=== PATIENT | female | born 1990 | race Caucasian/White ===

== ENCOUNTER 2022-02-19 16:40 | Emergency (ER) | payer BC, SELFPAY ==
[2022-02-19 16:50] VITALS: BP 129/88; PULSE 69; RESP 16; TEMP 36.7; O2SAT 99
--- NOTE | 2022-02-19 17:27 | ED.URI ---
HPI - URI/Sore Throat General Chief Complaint: Upper Respiratory Infection Stated Complaint: Cough Time Seen by Provider: 02/19/22 17:00 Source: patient Mode of arrival: ambulatory Limitations: no limitations History of Present Illness HPI Narrative: Mrs. Ledesma is a 32-year-old female patient presenting to the clinic today with complaints of cough x7 days. She reports that she is also had some nasal congestion and feels as though drainage is going in the back of her throat. She denies any known exposure to anyone with COVID, flu, or strep MD elicited complaint: nasal congestion Related Data Home Medications Medication Instructions Recorded Confirmed aspirin 81 mg chewable tablet 81 mg PO DAILY 06/25/21 02/19/22 cholecalciferol (vitamin D3) 125 125 mcg PO DAILY 06/25/21 02/19/22 mcg (5,000 unit) capsule levonorgestrel-ethinyl estradiol 1 tablet PO DAILY 06/25/21 02/19/22 0.1 mg-20 mcg tablet Allergies Allergy/AdvReac Type Severity Reaction Status Date / Time No Known Allergies Allergy Verified 02/19/22 16:46 Review of Systems Review of Systems: Pertinent positives per HPI. Patient denies any fever, chills, rash, headache, visual changes, dizziness, shortness of breath, chest pain, palpitations, nausea, vomiting, diarrhea, constipation, abdominal pain, or any urinary issues. [facility] Family History Family History Mother Endometriosis Social History Social History Alcohol intake: current Substance use: never Gender identity (if verbalized by the patient): Female Sexual Orientation (if Verbalized by the Patient): Straight or Heterosexual Comments At the time of my signature, I reviewed and agree with the nursing past medical, surgical, social, and family history. There is no relevant family history pertinent to the patient complaint. Exam Narrative: General: Well-developed, overweight, in no apparent distress Head: Normocephalic, atraumatic Eyes: Pupils equally round and reactive to light bilaterally, EOM intact, sclera and conjunctive clear, no discharge, lids normal Ears: TMs intact and clear, ear canals clear, no drainage, grossly hearing normal. Nose: Nares patent, clear nasal discharge, mild inflammation, no sinus tenderness. Mouth: Oral pharynx without lesions or masses, good dentition, MMM. Postnasal drip Neck: Supple, trachea midline, no enlargement of anterior or posterior cervical nodes, no thyroid masses or goiter palpable. Cardio: Regular rate and rhythm, s1 and s2 normal, no murmur appreciated. Resp: Clear to auscultation bilaterally, no rhonchi, rales, wheezing or rubs Course Course Emergency Course: Portions of this record may have been created with voice recognition software. Level of Care: Express Care Visit Vital Signs Vital signs: Vital Signs Temperature 36.7 C 02/19/22 16:50 Pulse Rate 69 02/19/22 16:50 Respiratory Rate 16 02/19/22 16:50 Blood Pressure 129/88 02/19/22 16:50 Pulse Oximetry 99 02/19/22 16:50 Temperature 36.7 C 02/19/22 16:50 Pulse Rate 69 02/19/22 16:50 Respiratory Rate 16 02/19/22 16:50 Blood Pressure 129/88 02/19/22 16:50 Pulse Oximetry 99 02/19/22 16:50 Vital signs reviewed MDM - URI/Sore Throat MDM Narrative Medical decision making narrative: At the time of visit patient is resting comfortably on the exam table. She has a nonproductive cough with nasal drainage and postnasal drip. I suspect allergic rhinitis with postnasal drip and a prescription for some prednisone and Tessalon Perles was given to patient. She voiced understanding of discharge instructions. Differential Diagnosis Differential diagnosis: Likely upper respiratory infection, croup, otitis media, sinusitis, viral infection, bronchitis, influenza, pharyngitis and other (Allergic rhinitis) Discharge Plan Discharge Cli
== END 2022-02-19 17:57 | disposition home or self-care (01) ==
PROVIDERS: Emergency Provider Nurse Practitioner Family
DX: R09.82 Postnasal drip (principal); J30.9 Allergic rhinitis, unspecified; Z79.82 Long term (current) use of aspirin
CPT/HCPCS: 99213; G0463

== ENCOUNTER 2025-10-20 09:56 | Emergency (ER) | payer BC, SELFPAY ==
[2025-10-20 10:01] VITALS: BP 141/92; PULSE 67; RESP 20; TEMP 36.6; O2SAT 100
--- NOTE | 2025-10-20 10:21 | ED.WOUNDLAC ---
HPI - Wound/Laceration General Chief Complaint: Wound/Laceration Stated Complaint: Lac to left thumb Time Seen by Provider: 10/20/25 10:14 Source: patient Mode of arrival: ambulatory Limitations: no limitations History of Present Illness HPI narrative: 35 years old white female came to the ED by private car from home with laceration left thumb while cutting plastic part of a toy with a knife prior to arrival. Unknown last tetanus shot. No other injuries. Related Data Home Medications ?Medication ?Instructions ?Recorded ?Confirmed ?Last Taken ?Type aspirin 81 mg chewable tablet 81 mg PO DAILY 06/25/21 02/19/22 Unknown History cholecalciferol (vitamin D3) 125 125 mcg PO DAILY 06/25/21 02/19/22 Unknown History mcg (5,000 unit) capsule levonorgestrel-ethinyl estradiol 1 tablet PO DAILY 06/25/21 02/19/22 Unknown History 0.1 mg-20 mcg tablet (Larissia) Allergies Allergy/AdvReac Type Severity Reaction Status Date / Time No Known Allergies Allergy Verified 10/20/25 10:03 Review of Systems Review of Systems: All systems reviewed & are unremarkable except as noted in HPI and below PMFSH Family History Family History Mother Endometriosis Social History Social History Alcohol intake: current Substance use: never Living arrangements: with family Occupation/Education: occupation Gender identity (if verbalized by the patient): Female Sexual Orientation (if Verbalized by the Patient): Straight or Heterosexual Exam Narrative: General appearance: Well-developed, well-nourished Skin: Normal color Vascular: Normal peripheral pulses, normal capillary refill. Musculoskeletal: Left thumb exam showing 1 cm laceration subcutaneous medial side at the proximal interphalangeal joint. No active bleeding, no torn ligaments or tendon. Neurologic: Alert and oriented ?3, Course Vital Signs Vital signs: Vital Signs Temperature 36.6 C 10/20/25 10:01 Pulse Rate 67 10/20/25 10:01 Respiratory Rate 20 10/20/25 10:01 Blood Pressure 141/92 H 10/20/25 10:01 Pulse Oximetry 100 10/20/25 10:01 Oxygen Delivery Room Air 10/20/25 10:01 Temperature 36.6 C 10/20/25 10:01 Pulse Rate 67 10/20/25 10:01 Respiratory Rate 20 10/20/25 10:01 Blood Pressure 141/92 H 10/20/25 10:01 Pulse Oximetry 100 10/20/25 10:01 Oxygen Delivery Room Air 10/20/25 10:01 Procedures Laceration Laceration 1: Date: 10/20/25 Time: 11:11 Site: other (Left thumb) Side (If applicable): left Size (cm): 1.5 Description: linear and clean Depth: simple, single layer Local Anesthetic: lidocaine 1% and other anesthetic (Let) Amount of anesthesia used (mL): 4 Pre-repair: wound explored ====== Skin Level ====== Skin layer closed with: nylon Size (cm): 6-0 Number of sutures: 3 Technique: simple, interrupted ====== Subcutaneous Layer ====== ====== Muscle Layer ====== ====== Tendon Layer ====== MDM Differential Diagnosis Differential Diagnosis: FINGER LACERATION Discharge Plan Discharge Clinical Impression: Finger laceration Patient Disposition: Home Condition: Stable Instructions: Finger Laceration (ED) Additional Instructions: Return if symptoms are worsening , call your family physician for appointment, take Tylenol as as needed for aches and pain, continue home medications. Remove sutures in 8 days. Topical Neosporin Patient Language: Fijian Prescriptions: No Action benzonatate 200 mg capsule 200 mg PO TID 7 Days Qty: 21 0RF prednisone 20 mg tablet 40 mg PO DAILY 5 Days Qty: 10 0RF levonorgestrel-ethinyl estrad [Larissia] 0.1-20 mg-mcg tablet 1 tablet PO DAILY cholecalciferol (vitamin D3) 125 mcg (5,000 unit) capsule 125 mcg PO DAILY aspirin 81 mg tablet,chewable 81 mg PO DAILY sumatriptan succinate 50 mg tablet See Rx Instructions PO .COMPLEX Qty: 10 1RF Rx Instructions: take 1 tab at onset of headache; if no relief may repeat 1 tab after at least 2 hrs; max = 4 tabs/24 hr PO meclizine 12.5 mg tablet 12.5 mg PO TID PRN (Reason: dizziness) Qty: 30 0RF Rx Instructions: caution: drowsiness. no driving after taking. fluticasone propionate 50 mcg/actuation spray,suspension See Rx Instructions .ROUTE .COMPLEX Qty: 3 3RF Dose Instruction: INSTILL 1 SPRAY TWICE A DAY INTO EACH NOSTRIL Rx Instructions: INSTILL 1 SPRAY TWICE A DAY INTO EACH NOSTRIL propranolol 20 mg tablet See Rx Instructions .ROUTE .COMPLEX Qty: 180 1RF Dose Instruction: TAKE 1 TABLET BY MOUTH EVERY 12 HOURS Rx Instructions: TAKE 1 TABLET BY MOUTH EVERY 12 HOURS Follow-up/Referrals: PHYSICIAN,[employer]CHNICIAN [Primary Care Provider, Internal Medicine]
--- OUTSIDE RECORDS SUMMARY | 2025-10-20 10:35 | XMS_ITS | Clinical Summary ---
Author Organization [facility] Address [facility]ly [facility] [address] Care Team Providers Care Property Maintenance Technician Name Role Phone Vanessa Valdez URMILA Primary Care Provider [phone] Allergies No known active allergies Medications LARISSIA 0.1-20 MG-MCG tablet Take 1 tablet by mouth daily. 4 9 Active lidocaine 5 % ointment APPLY EXTERNALLY TO AFFECTED AREA EVERY 6 HOURS NEEDED 0 9 Active sertraline 50 MG tablet Take 50 mg by mouth daily. 4 9 Active Active Problems Problem Noted Date Diagnosed Date Cough 10/11/2019 Obesity with body mass index 30 or greater 07/12 Overview (10/09/2019): Overview: BMI 30+ - obesity Torn cartilage 11/06/2014 Overview (10/09/2019): Overview: Torn knee cartilage Knee pain 03/17/2014 Overview (10/09/2019): Overview: Knee pain Resolved Problems Problem Noted Date Diagnosed Date Resolved Date [facility] 07/12/2020 Immunizations Immunization Administration Dates Next Due HPV 08/21/2011,09/24/2008,05/01/2008 Influenza (Generic) 10/09/2013,10/21/2012 Influenza Adult (Generic) 08/14/2019,12/03/2016 Meningococcal(Mcv 4)Aka Menactra 05/01/2008 Tdap (Generic) 05/18/2006 Family History Medical History Relation Comments Breast Cancer Maternal Aunt Endometriosis Maternal Aunt Breast Cancer Maternal Grandmother Endometriosis Maternal Grandmother Endometriosis Mother Relation Status Comments Maternal Aunt Maternal Grandmother Mother Social History Tobacco Use Types Packs/Day Years Used Date Smoking Tobacco: Never Smokeless Tobacco: Never Alcohol Use Standard Drinks/Week Comments Yes 0 (1 standard drink = 0.6 oz pur e alcohol) AUDIT-C Answer Date Recorded Frequency of Alcohol Consumption Monthly or less 10/09/2019 Average Number of Drinks 1 or 2 019 Frequency of Binge Drinking Never 07/2019 Education Answer Date Recorded What is the highest level of school you have completed or the highest degree you have received? Bachelor's degree (e.g., BA, AB, BS) 10/09/2019 Comments Unknown Sex and Gender Information Value Date Recorded Sex Assigned at Not on file Legal Sex Female 8:24 AM [employer] Gender Identity Not on file Sexual Orientation Not on file Last Filed Vital Signs Vital Sign Reading Time Taken Comments Blood Pressure 113/70 10/09/2019 8:47 AM [employer] Pulse 69 10/09/2019 8:47 AM HE[employer] Temperature 36.5 C (97.7 F) 10/09/2019 8:47 AM HE[employer] Respiratory Rate 16 10/09/2019 8:47 AM HE[employer] Oxygen Saturation 98% 10/09/2019 8:47 AM HEEL [employer] Inhaled Oxygen Concentration - - Weight 106.1 kg (234 lb) 10/09/2019 8:47 AM HE[employer] Height 160 cm (5' 3) 10/09/2019 8:47 AM HE[employer] SE[employer] Body Mass Index 41.45 10/09/2019 8:47 AM HE[employer] Plan of Treatment Health Maintenance Due Date Last Done Comments Cervical Cancer Screening Pap Smear (Age 30 to 64) Every 3 Years 1990 Annual Physical 1993 Hepatitis C 01/24/2008 Hepatitis B Vaccines (1 of 3 - 19+ 3-dose series) 2009 DTaP, Tdap and Td Vaccines (2 - Td or Tdap) 05/18/2016 05/18/2006 Cervical Cancer Screening Pap with HPV Testing (Age 30 to 64) Every 5 Years 01/24/2020 Cervical Cancer Screening with HPV 01/24/2020 COVID-19 Vaccine ( - 2024- season) 2025 Influenza Adult (#1) 2025 08/14/2019, 12/03/2016, 10/09/2013, Additional history exists HPV Vaccines Completed 08/21/2011, 09/02, 05/01/2008 Hepatitis A Vaccines Aged Out No long er eligible based on patient's age to complete this topic Meningococcal B Vaccine Aged Out No l onger eligible based on patient's age to complete this topic Meningococcal Vaccine Aged Out No césar jose juan eligible based on patient's age to complete this topic Pneumococcal Vaccine: Pediatrics (0 to 5 Years) and At-Risk Patients (6 to 49 Years) Aged Out No longer eligible based on patient's age to complete this topic RSV Immunizations Under 20 Months Aged Out No longer eligible based on patient's age to complete this topic Insurance [facility] Care Teams Property Maintenance Technician Relationship Specialty Start Date End Date Vanessa Valdez FNP [address] [place] [id number] PCP - General Nurse Practitioner Family 10/09/19
[2025-10-20] MEDS: TETANUS,DIPHTHERIA,AC PERTUSSIS ADULT (0.5 ML) BOOSTRIX IM (11:11)
[2025-10-20] MEDS: LIDOCAINE, EPINEPHRINE, TETRACAINE VISCOUS SOLN 3 ML TOPICAL (11:11)
[2025-10-20] MEDS: LIDO 1%/EPINEPHRINE 1:100,000 20 ML VIAL 5 ML INFILTRATE (11:11)
[2025-10-20 12:15] VITALS: BP 132/75; PULSE 72; RESP 18; TEMP 36.8; O2SAT 99
== END 2025-10-20 12:15 | disposition home or self-care (01) ==
PROVIDERS: Emergency Provider Emergency Medicine
DX: S61.012A Laceration without foreign body of left thumb without damage to nail, initial encounter (principal); Z23 Encounter for immunization; W26.0XXA Contact with knife, initial encounter
CPT/HCPCS: 12001; 90471; 90715; 99282; J2004